=== PATIENT | male | born 1965 | race Caucasian/White ===

== ENCOUNTER 2023-12-22 18:46 | Emergency (ER) | payer BC ==
[2023-12-22 19:31] LABS: Hematocrit 37.9 % (42.0-52.0); Hemoglobin 13.6 g/dL (14.0-18.0); Mean Corpuscular HGB CONC 35.9 g/dL (32.0-36.0); Mean Corpuscular Hemoglobin 35.4 pg (27.0-31.0); Mean Corpuscular Volume 98.6 fl (78.0-98.0); Mean Platelet Volume 11.1 fL (7.4-10.4); Platelet Count 77 10x3/uL (130-400); RBC Distribution Width 13.7 % (11.5-14.5); Red Blood Cell (RBC) Count 3.84 mill/uL (4.70-6.10); White Blood Cell (WBC) Count 6.8 10x3/uL (4.8-10.8)
[2023-12-22 19:32] LABS: #Basophils 0.2 thou/uL (0.0-0.2); #Eosinphils 0.3 thou/uL (0.0-0.7); #Lymphocytes 1.3 thou/uL (1.20-3.40); #Monocytes 0.8 thou/uL (0.11-0.59); #Neutrophils 4.2 thou/uL (1.40-6.50); %Basophils 2.2 % (0.0-1.0); %Eosinophils 4.1 % (0.0-10.0); %Lymphocytes 19.3 % (21.0-51.0); %Neutrophils 62.4 % (42.0-75.0)
[2023-12-22 19:37] LABS: INR-International Normal Ratio 1.9; Prothrombin Time 21.5 sec (12.0-14.7)
[2023-12-22 19:38] LABS: PTT 41.7 sec (22.9-36.1)
[2023-12-22 19:43] LABS: ALT (SGPT) 926 U/L (8-55); AST (SGOT) 1425 U/L (5-34); Albumin 2.7 g/dL (3.5-5.0); Alkaline Phosphatase 125 U/L (40-110); Anion Gap 17 mmol/L (10-20); BUN (Urea Nitrogen) 27 mg/dL (8.4-25.7); Bilirubin, Total 23.7 mg/dL (0.2-1.2); Calc. Creatinine Clearance 0 mL/min (70-130); Calcium 8.8 mg/dL (7.8-10.44); Carbon Dioxide 17 mmol/L (22-29); Chloride 91 mmol/L (98-107); Estimated GFR 37; Globulin 4.7 g/dL (2.4-3.5); Glucose 129 mg/dL (70-105); Potassium 3.3 mmol/L (3.5-5.1); Protein, Total 7.4 g/dL (6.0-8.3); Sodium 122 mmol/L (136-145)
[2023-12-22 19:44] LABS: Troponin I 0.015 ng/mL (< 0.028)
[2023-12-22 19:54] LABS: MDiff Complete? YES; Platelet Adequacy Comment Appears Decreased
[2023-12-22 21:49] LABS: Acetaminophen Less than 10 mcg/mL (Less than 10); Alcohol Less than 10.0 mg/dL (Less than 10); Salicylate Less than 8.0 mg/dL (Less than 8.0)
[2023-12-22] MEDS ORDERED: Lorazepam 2 MG/ML VIAL ONE (22:53)
[2023-12-23] MEDS ORDERED: Ondansetron PF 4 MG/2 ML Vial ONE (00:44)
== END 2023-12-23 01:07 | disposition short-term general hospital (02) ==
LOC: BURERS 18:46
DX: K92.2 Gastrointestinal hemorrhage, unspecified (principal); E87.1 Hypo-osmolality and hyponatremia; D69.6 Thrombocytopenia, unspecified; K70.9 Alcoholic liver disease, unspecified; I10 Essential (primary) hypertension; F17.220 Nicotine dependence, chewing tobacco, uncomplicated; Z79.899 Other long term (current) drug therapy
CPT/HCPCS: 36415; 71046; 80053; 80307; 83880; 84484; 85025; 85610; 85730; 86850; 86900; 86901; 93005; 94760; 96374; 96375; J2060; J2405